=== PATIENT | male | born 1950 | race Caucasian/White ===

== ENCOUNTER 2017-11-28 11:13 | Inpatient (IN) | payer MEDICARE ==
[~2017-11-28] VITALS: Ht 167.6 cm; Wt 71.7 kg
[2017-11-28] VITALS (21 sets, daily range): BP systolic 79–172; BP diastolic 48–86
[2017-11-28 11:35] LABS: HEMATOCRIT 42.3 % (39.0-50.0); HEMOGLOBIN 15.4 g/dl (14.0-18.0); IMMATURE GRANULOCYTES 0.7 % (0.0-5.0); MEAN CELL VOLUME 86.2 fL CALC (80.0-100.0); MEAN CORPUSCULAR HGB 31.4 pG CALC (26.0-32.0); MEAN CORPUSCULAR HGB CONC 36.4 g/L CALC (32.0-36.0); NEUT# 4.51 thou/uL (1.82-7.42); RED BLOOD COUNT 4.91 mill/uL (4.70-6.10); RED CELL DISTRI WIDTH 11.7 % (11.5-15.5)
[2017-11-28] MEDS ORDERED: [UNRECOGNIZED DRUG - OTHER] PO (11:46)
[2017-11-28] MEDS ORDERED: CLONAZEPAM1 M1 PO ×2 (11:47→11:48)
[2017-11-28] MEDS ORDERED: CYANOCOBAL1000 MCG/M IM (11:48)
[2017-11-28] MEDS ORDERED: SELEGILINE PO (11:50)
[2017-11-28] MEDS ORDERED: LEVOTHYROXIN25 MC1 PO (11:51)
[2017-11-28 12:07] LABS: ALBUMIN 5.3 g/dL (3.2-5.0); ALKALINE PHOSPHATASE 71 u/l (38-126); ANION GAP 20 (6-22 (CALC)); BILIRUBIN, TOTAL 1.7 mg/dL (0.0-1.4); BUN 37 mg/dL (8-23); BUN/CREATININE RATIO 30 (12-20 (CALC)); CARBON DIOXIDE 25 mmol/l (22-30); CHLORIDE 100 mmol/l (95-108); CREATININE 1.2 mg/dL (0.7-1.3); GFR > 60 ML/MIN (>=60 (CALC)); GFR FOR AFR.AMER. > 60 ML/MIN (>=60 (CALC)); POTASSIUM 4.4 mmol/l (3.5-5.1); SGOT/AST 49 u/l (19-48); SGPT/ALT 30 u/l (11-66); SODIUM 140 mmol/l (137-146); TOTAL PROTEIN 8.7 g/dL (6.3-8.2)
[2017-11-28 12:11] LABS: ETHYL ALCOHOL 0 mg/dl (0-30)
[2017-11-28 12:32] LABS: URINE BLOOD DIPSTICK NEGATIVE (NEGATIVE); URINE GLUCOSE - DIPSTICK NEGATIVE (NEGATIVE); URINE KETONE TRACE mg/dL (NEGATIVE); URINE LEUK ESTERASE NEGATIVE (NEGATIVE); URINE NITRITE - DIPSTICK NEGATIVE (Negative); URINE PH 5.5 (4.5-8.0); URINE PROTEIN - DIPSTICK TRACE mg/dL (NEG-TRACE); URINE SPECIFIC GRAVITY >=1.030
[2017-11-28 12:36] LABS: URINE BILIRUBIN - DIPSTICK SMALL (NEGATIVE); URINE CLARITY CLEAR; URINE COLOR DK. YELLOW
[2017-11-28 12:37] LABS: BARBITURATES NEGATIVE (NEGATIVE); COCAINE NEGATIVE (NEGATIVE); METHADONE NEGATIVE (NEGATIVE); OXCYCODONE NEGATIVE (NEGATIVE); TETRAHYDROCANNABIONOL NEGATIVE (NEGATIVE); TRICYLIC ANTIDEPRESSANTS POSITIVE (NEGATIVE)
[2017-11-28 12:38] LABS: TSH, 3RD GENERATION 6.76 uIU/mL (0.47 - 4.68)
[2017-11-29] VITALS (17 sets, daily range): BP systolic 104–174; BP diastolic 60–90
[2017-11-29 13:42] LABS: IMMATURE GRANULOCYTES 0.3 % (0.0-5.0); MEAN CELL VOLUME 87.8 fL CALC (80.0-100.0); MEAN CORPUSCULAR HGB 31.3 pG CALC (26.0-32.0); MEAN CORPUSCULAR HGB CONC 35.6 g/L CALC (32.0-36.0); NEUT# 2.62 thou/uL (1.82-7.42); RED CELL DISTRI WIDTH 12.1 % (11.5-15.5)
[2017-11-29 13:46] LABS: HEMATOCRIT 35.1 % (39.0-50.0); HEMOGLOBIN 12.5 g/dl (14.0-18.0)
[2017-11-29 14:10] LABS: ALKALINE PHOSPHATASE 56 u/l (38-126); ANION GAP 13 (6-22 (CALC)); BILIRUBIN, TOTAL 0.6 mg/dL (0.0-1.4); BUN 25 mg/dL (8-23); BUN/CREATININE RATIO 27 (12-20 (CALC)); CARBON DIOXIDE 25 mmol/l (22-30); CHLORIDE 109 mmol/l (95-108); CREATININE 0.9 mg/dL (0.7-1.3); GFR > 60 ML/MIN (>=60 (CALC)); GFR FOR AFR.AMER. > 60 ML/MIN (>=60 (CALC)); POTASSIUM 3.6 mmol/l (3.5-5.1); SGOT/AST 23 u/l (19-48); SGPT/ALT 30 u/l (11-66); SODIUM 143 mmol/l (137-146)
[2017-11-29 14:12] LABS: ALBUMIN 3.4 g/dL (3.2-5.0); TOTAL PROTEIN 5.7 g/dL (6.3-8.2)
[2017-11-30 00:17] VITALS: BP 112/73
[2017-11-30 05:30] VITALS: BP 167/83
[2017-11-30 05:39] LABS: HEMATOCRIT 34.9 % (39.0-50.0); HEMOGLOBIN 12.4 g/dl (14.0-18.0); IMMATURE GRANULOCYTES 0.4 % (0.0-5.0); MEAN CELL VOLUME 87.9 fL CALC (80.0-100.0); MEAN CORPUSCULAR HGB 31.2 pG CALC (26.0-32.0); MEAN CORPUSCULAR HGB CONC 35.5 g/L CALC (32.0-36.0); NEUT# 2.64 thou/uL (1.82-7.42); RED BLOOD COUNT 3.97 mill/uL (4.70-6.10); RED CELL DISTRI WIDTH 11.9 % (11.5-15.5)
[2017-11-30 06:05] LABS: ALBUMIN 3.5 g/dL (3.2-5.0); ALKALINE PHOSPHATASE 53 u/l (38-126); ANION GAP 14 (6-22 (CALC)); BILIRUBIN, TOTAL 0.5 mg/dL (0.0-1.4); BUN 20 mg/dL (8-23); BUN/CREATININE RATIO 26 (12-20 (CALC)); CARBON DIOXIDE 25 mmol/l (22-30); CHLORIDE 108 mmol/l (95-108); CREATININE 0.8 mg/dL (0.7-1.3); GFR > 60 ML/MIN (>=60 (CALC)); GFR FOR AFR.AMER. > 60 ML/MIN (>=60 (CALC)); SGOT/AST 23 u/l (19-48); SGPT/ALT 23 u/l (11-66); SODIUM 142 mmol/l (137-146); TOTAL PROTEIN 5.8 g/dL (6.3-8.2)
[2017-11-30 07:50] VITALS: BP 140/68
[2017-11-30 12:30] VITALS: BP 128/72
[2017-11-30 17:00] VITALS: BP 136/84
[2017-12-01] VITALS (7 sets, daily range): BP systolic 103–173; BP diastolic 58–90
[2017-12-01 05:16] LABS: HEMATOCRIT 35.7 % (39.0-50.0); HEMOGLOBIN 12.7 g/dl (14.0-18.0); MEAN CELL VOLUME 88.1 fL CALC (80.0-100.0); MEAN CORPUSCULAR HGB 31.4 pG CALC (26.0-32.0); MEAN CORPUSCULAR HGB CONC 35.6 g/L CALC (32.0-36.0); RED BLOOD COUNT 4.05 mill/uL (4.70-6.10)
[2017-12-01 05:28] LABS: ANION GAP 12 (6-22 (CALC)); BUN 19 mg/dL (8-23); BUN/CREATININE RATIO 30 (12-20 (CALC)); CARBON DIOXIDE 27 mmol/l (22-30); CHLORIDE 106 mmol/l (95-108); CREATININE 0.6 mg/dL (0.7-1.3); GFR > 60 ML/MIN (>=60 (CALC)); GFR FOR AFR.AMER. > 60 ML/MIN (>=60 (CALC)); MAGNESIUM 1.9 mg/dL (1.6-2.3); POTASSIUM 3.8 mmol/l (3.5-5.1); SODIUM 141 mmol/l (137-146)
[2017-12-02 04:12] VITALS: BP 124/74
[2017-12-02 04:38] LABS: HEMATOCRIT 36.7 % (39.0-50.0); HEMOGLOBIN 12.8 g/dl (14.0-18.0); IMMATURE GRANULOCYTES 0.4 % (0.0-5.0); MEAN CORPUSCULAR HGB 30.7 pG CALC (26.0-32.0); MEAN CORPUSCULAR HGB CONC 34.9 g/L CALC (32.0-36.0); NEUT# 2.37 thou/uL (1.82-7.42); RED BLOOD COUNT 4.17 mill/uL (4.70-6.10); RED CELL DISTRI WIDTH 12.1 % (11.5-15.5)
[2017-12-02 04:52] LABS: ALBUMIN 3.5 g/dL (3.2-5.0); ALKALINE PHOSPHATASE 58 u/l (38-126); ANION GAP 11 (6-22 (CALC)); BILIRUBIN, TOTAL 0.5 mg/dL (0.0-1.4); BUN 18 mg/dL (8-23); BUN/CREATININE RATIO 24 (12-20 (CALC)); CARBON DIOXIDE 27 mmol/l (22-30); CHLORIDE 106 mmol/l (95-108); CREATININE 0.7 mg/dL (0.7-1.3); GFR > 60 ML/MIN (>=60 (CALC)); GFR FOR AFR.AMER. > 60 ML/MIN (>=60 (CALC)); SGOT/AST 18 u/l (19-48); SGPT/ALT 20 u/l (11-66); SODIUM 140 mmol/l (137-146); TOTAL PROTEIN 5.8 g/dL (6.3-8.2)
[2017-12-02 08:30] VITALS: BP 116/79
[2017-12-02 15:48] VITALS: BP 123/73
[2017-12-02 20:46] VITALS: BP 123/81
[2017-12-03 05:00] LABS: HEMATOCRIT 38.3 % (39.0-50.0); HEMOGLOBIN 13.6 g/dl (14.0-18.0); IMMATURE GRANULOCYTES 0.4 % (0.0-5.0); MEAN CELL VOLUME 87.6 fL CALC (80.0-100.0); MEAN CORPUSCULAR HGB 31.1 pG CALC (26.0-32.0); MEAN CORPUSCULAR HGB CONC 35.5 g/L CALC (32.0-36.0); NEUT# 3.73 thou/uL (1.82-7.42); RED BLOOD COUNT 4.37 mill/uL (4.70-6.10); RED CELL DISTRI WIDTH 12.1 % (11.5-15.5)
[2017-12-03 05:01] VITALS: BP 110/77
[2017-12-03 05:22] LABS: ALBUMIN 3.8 g/dL (3.2-5.0); ALKALINE PHOSPHATASE 64 u/l (38-126); ANION GAP 16 (6-22 (CALC)); BILIRUBIN, TOTAL 0.5 mg/dL (0.0-1.4); BUN 18 mg/dL (8-23); BUN/CREATININE RATIO 23 (12-20 (CALC)); CARBON DIOXIDE 24 mmol/l (22-30); CHLORIDE 106 mmol/l (95-108); CREATININE 0.8 mg/dL (0.7-1.3); GFR > 60 ML/MIN (>=60 (CALC)); GFR FOR AFR.AMER. > 60 ML/MIN (>=60 (CALC)); POTASSIUM 4.3 mmol/l (3.5-5.1); SGOT/AST 20 u/l (19-48); SGPT/ALT 21 u/l (11-66); SODIUM 142 mmol/l (137-146); TOTAL PROTEIN 6.4 g/dL (6.3-8.2)
[2017-12-03 08:01] VITALS: BP 128/78
[2017-12-03 08:05] VITALS: BP 128/78
[2017-12-03] MEDS ORDERED: AMLODIPINE BESYL5 MG PO (14:27)
== END 2017-12-03 15:16 | disposition home or self-care (01) | DRG 885 ==
LOC: ED 11:13 → ED-I 11:41 → ED 13:32 → MS2 13:33 → ICU 13:33 → MS2 11-29 14:20
PROVIDERS: Emergency Medicine; Nurse Practitioner Family; ADMIT General Practice; ATTEND General Practice
DX: F29 Unspecified psychosis not due to a substance or known physiological condition (principal); E87.2 Acidosis; E86.0 Dehydration; F22 Delusional disorders; I10 Essential (primary) hypertension; D64.9 Anemia, unspecified; F32.9 Major depressive disorder, single episode, unspecified; F90.9 Attention-deficit hyperactivity disorder, unspecified type; E03.9 Hypothyroidism, unspecified; F99 Mental disorder, not otherwise specified; Z91.14 Patient's other noncompliance with medication regimen
CPT/HCPCS: J1650; S0166

== ENCOUNTER 2020-08-07 | Emergency (ER) | payer MEDICARE ==
[~2020-08-07] MED LIST: AMLODIPINE BESYL5 MG PO; CLONAZEP ODT0.5 MG PO; CLONAZEP ODT1 MG PO; CLONAZEPAM1 M1 PO; CYANOCOBAL1000 MCG/M IM; HYDROXYZ PAM50 M1 PO; HYDROXYZINE PAM25 MG PO; LEVOTHYROXIN25 MC1 PO; PHENELZINE 15 MG PO; QUETIAPINE FUM100 MG PO; QUETIAPINE FUMA25 MG PO; RITALIN20 MG PO; SELEGILINE PO; [UNRECOGNIZED DRUG - OTHER] PO
[2020-08-07 20:51] LABS: HEMOGLOBIN 14.3 g/dl (14.0-18.0); IMMATURE GRANULOCYTES 0.4 % (0.0-5.0); MEAN CORPUSCULAR HGB 27.6 pG CALC (26.0-32.0); MEAN CORPUSCULAR HGB CONC 33.3 g/dL CAL (32.0-36.0); NEUT# 4.45 thou/uL (1.82-7.42); RED BLOOD COUNT 5.18 mill/uL (4.70-6.10); RED CELL DISTRI WIDTH 11.4 % (11.5-15.5)
[2020-08-07 21:13] LABS: ALKALINE PHOSPHATASE 72 u/l (38-126); BUN 19 mg/dL (8-23); BUN/CREATININE RATIO 20 (12-20 (CALC)); CARBON DIOXIDE 24 mmol/l (22-30); CHLORIDE 101 mmol/l (95-108); GFR > 60 ML/MIN (>=60 (CALC)); GFR FOR AFR.AMER. > 60 ML/MIN (>=60 (CALC)); LIPASE 123 u/l (23-300); POTASSIUM 4.3 mmol/l (3.5-5.1); SGOT/AST 26 u/l (19-48)
[2020-08-07 21:15] LABS: ALBUMIN 4.7 g/dL (3.2-5.0); ANION GAP 12 (6-22 (CALC)); BILIRUBIN, TOTAL 0.9 mg/dL (0.0-1.4); SODIUM 133 mmol/l (137-146); TOTAL PROTEIN 7.9 g/dL (6.3-8.2)
[2020-08-07 21:17] LABS: ACT PARTIAL THROMBO TIME 23.4 SECONDS (20.0-32.5); PROTHROMBIN TIME 10.6 SECONDS (9.0-12.5)
[2020-08-07 21:48] LABS: URINE BILIRUBIN - DIPSTICK NEGATIVE (NEGATIVE); URINE BLOOD DIPSTICK NEGATIVE (NEGATIVE); URINE COLOR YELLOW; URINE GLUCOSE - DIPSTICK NEGATIVE (NEGATIVE); URINE KETONE NEGATIVE (NEGATIVE); URINE LEUK ESTERASE NEGATIVE (NEGATIVE); URINE PH 5.5 (4.5-8.0); URINE PROTEIN - DIPSTICK NEGATIVE (NEG-TRACE); URINE UROBILINOGEN - DIPSTICK 0.2 E.U./dL (0.2)
[2020-08-07 21:51] LABS: URINE NITRITE - DIPSTICK NEGATIVE (Negative)
[2020-08-07] MEDS ORDERED: ONDANSETRON4 MG PO (22:10)
== END 2020-08-07 22:34 | disposition home or self-care (01) ==
DX: R11.0 Nausea (principal); R51.9 Headache, unspecified; R53.83 Other fatigue; R63.0 Anorexia; T50.B95A Adverse effect of other viral vaccines, initial encounter; F32.9 Major depressive disorder, single episode, unspecified; I73.9 Peripheral vascular disease, unspecified; F41.9 Anxiety disorder, unspecified; Z91.5 Personal history of self-harm

== ENCOUNTER 2024-05-19 23:19 | Emergency (ER) | payer MEDICARE ==
[~2024-05-19] VITALS: Ht 177.8 cm; Wt 63.5 kg
[~2024-05-19 23:19] MED LIST changes: +ONDANSETRON4 MG PO
[2024-05-19] MEDS ORDERED: HYDROmorphone HCL 2 MG/AMP IM ONE (23:55)
[2024-05-19] MEDS ORDERED: PROMETHAZINE HCL 25 MG/ML AMP IM ONE (23:55)
[2024-05-20 00:28] VITALS: BP 135/74
== END 2024-05-20 00:28 | disposition home or self-care (01) ==
LOC: ED 23:19
DX: M54.6 Pain in thoracic spine (principal); G89.29 Other chronic pain
CPT/HCPCS: J1171; J2550